=== PATIENT | female | born 1970 ===

== ENCOUNTER 2017-04-13 06:00 | Outpatient (CLI) | payer OTHER ==
[~2017-04-13] VITALS: Ht 160 cm; Wt 78.5 kg
== END 2017-04-13 06:05 | disposition home or self-care (01) ==
LOC: LAB 06:00 → SURH 04-16 07:00 → EDSTATUS 04-16 08:15
DX: Z01.812 Encounter for preprocedural laboratory examination (principal); Z01.810 Encounter for preprocedural cardiovascular examination; D25.9 Leiomyoma of uterus, unspecified

== ENCOUNTER 2017-05-08 12:30 | Emergency (ER) | payer OTHER ==
[~2017-05-08] VITALS: Ht 160 cm; Wt 76.2 kg
[2017-05-08] MEDS ORDERED: MAXFE CAPLET1 EACH (13:20)
== END 2017-05-08 22:47 | disposition home or self-care (01) ==
LOC: ER 12:30
DX: K29.60 Other gastritis without bleeding (principal); E83.52 Hypercalcemia

== ENCOUNTER 2017-05-19 08:14 | Outpatient (CLI) | payer OTHER ==
[~2017-05-19 08:14] MED LIST: MAXFE CAPLET1 EACH
== END 2017-05-19 08:20 | disposition home or self-care (01) ==
LOC: SONOGRAMA 08:14
DX: E83.52 Hypercalcemia (principal)

== ENCOUNTER 2017-05-20 17:04 | Emergency (ER) | payer OTHER ==
[~2017-05-20] VITALS: Ht 160 cm; Wt 74.8 kg
== END 2017-05-21 09:49 | disposition home or self-care (01) ==
LOC: ER 17:04
DX: E83.51 Hypocalcemia (principal); E86.0 Dehydration

== ENCOUNTER 2017-05-21 14:16 | Inpatient (IN) | payer OTHER ==
[~2017-05-21] VITALS: Ht 160 cm; Wt 74.8 kg
== END 2017-05-28 20:41 | disposition home or self-care (01) | DRG 983 ==
LOC: ER 14:16 → MEDJ 21:58 → SEC-K 21:58 → MEDJ 05-22 00:04
PROVIDERS: Surgery
PROC: 0GBG3ZX Excision of Left Thyroid Gland Lobe, Percutaneous Approach, Diagnostic (ICD-10-PCS; 2017-05-21)
PROC: 02HV33Z Insertion of Infusion Device into Superior Vena Cava, Percutaneous Approach (ICD-10-PCS; 2017-05-25)
PROC: 0GTP0ZZ Resection of Left Inferior Parathyroid Gland, Open Approach (ICD-10-PCS; principal; 2017-05-27 12:00)
DX: K29.00 Acute gastritis without bleeding (principal); E86.0 Dehydration; E87.6 Hypokalemia; E21.0 Primary hyperparathyroidism; D35.1 Benign neoplasm of parathyroid gland

== ENCOUNTER 2018-06-28 07:51 | Outpatient (CLI) | payer OTHER | END 2018-06-28 15:05 | disposition home or self-care (01) | LOC: LAB 07:51 | DX: D68.8 Other specified coagulation defects (principal); I10 Essential (primary) hypertension; N96 Recurrent pregnancy loss ==

== ENCOUNTER 2018-06-30 08:00 | Inpatient (IN) | payer OTHER ==
[~2018-06-30] VITALS: Ht 160 cm; Wt 77.1 kg
[2018-06-30] MEDS ORDERED: OMEPRAZOLE20 MG PO (14:31)
[2018-07-11] MEDS ORDERED: CODE1TAB37 PO (10:50)
[2018-07-11] MEDS ORDERED: NAPR500T14 PO (10:50)
== END 2018-07-11 11:32 | DRG 743 ==
LOC: ADM 08:00 → EDSTATUS 08:00 → OB/GYN 07-08 06:25 → O/R 07-08 06:25 → SURH 07-08 08:00 → OB/GYN 07-08 11:16 → SURH 07-08 14:00 → OB/GYN 07-11 11:32
PROVIDERS: ADMIT Obstetrics & Gynecology
PROC: 0TJB8ZZ Inspection of Bladder, Via Natural or Artificial Opening Endoscopic (ICD-10-PCS; 2018-07-08)
PROC: 0UT90ZZ Resection of Uterus, Open Approach (ICD-10-PCS; principal; 2018-07-08 14:00)
DX: D25.1 Intramural leiomyoma of uterus (principal); D25.2 Subserosal leiomyoma of uterus; N73.6 Female pelvic peritoneal adhesions (postinfective); N72 Inflammatory disease of cervix uteri; E21.2 Other hyperparathyroidism; K29.60 Other gastritis without bleeding